=== PATIENT | male | born 1930 | race Caucasian/White ===

== ENCOUNTER 2019-04-16 17:36 | Inpatient (IN) ==
--- NOTE | 2019-04-16 17:58 | PROVIDER DOCUMENTATION ---
This chart was entered by Rosita Jean Baptiste Scribe, acting as scribe for Swapnil Kwok MD. HPI-Respiratory General - General Source: patient - History of Present Illness-Resp Quality of Pain: reports: pressure Severity in ED: reports: moderate Onset/Duration: reports: 1-3 hours ago Timing: reports: still present, changing over time Cough Quality/Degree: reports: moderate Current Respiratory Medication Therapy: Initiated see nurses note Modifying Factors: worse with: exertion, coughing Associated Symptoms: reports: cough, shortness of breath, short of breath Similar Symptoms Previously?: Yes Recently seen or treated by another doctor?: Yes <Swapnil Kwok - Last Filed: 04/16/19 17:57> <Alisha Kirby - Last Filed: 04/16/19 21:12> - General Chief Complaint: Shortness of Breath Stated Complaint: SOB Time Seen by Provider: 04/16/19 17:40 Allergies/Adverse Reactions: Patient Allergies Allergy/AdvReac Type Severity Reaction Status Date / Time Penicillins AdvReac Unknown Verified 07/02/16 17:23 Home Medications: Home Medication List Medication Instructions Recorded Confirmed Last Taken Type Citalopram [Celexa] 20 mg PO DAILY 07/02/16 07/02/16 07/02/16 History Finasteride 5 mg PO DAILY 07/02/16 07/02/16 07/02/16 History Gabapentin 300 mg PO DAILY 07/02/16 07/02/16 07/02/16 History Hum Insulin NPH/Reg Insulin Hm 2 each SQ DAILY 07/02/16 07/02/16 07/02/16 History [Novolin 70-30 100 Unit/ml Vial] Hydrochlorothiazide 25 mg PO DAILY 07/02/16 07/02/16 07/02/16 History LISINOpril [Prinivil] 2.5 mg PO DAILY 07/02/16 07/02/16 07/02/16 History Lorazepam 0.5 mg PO DAILY 07/02/16 07/02/16 07/02/16 History Metoprolol Tartrate 100 mg PO DAILY 07/02/16 07/02/16 07/02/16 History ATORVAstatin [Lipitor] 40 mg PO HS #30 tablet 07/04/16 Unknown Rx Aspirin [Aspirin EC] 325 mg PO DAILY #30 tablet. 07/04/16 Unknown Rx Omeprazole 40 mg PO DAILY #30 07/04/16 07/02/16 07/02/16 Rx Sucralfate [Carafate] 1 gm PO Q6H #120 tablet 07/04/16 Unknown Rx - History of Present Illness-Resp Nature of Presenting Problem: 88yowm presents to ED by EMS cc SOB. Pt reports he is being treated for a URI with ABT and steroid. EMS reports home health called them and said pt became increasingly SOB with rales, ronchi and wheezing as the day has progressed. EMS reports sats dropped into the high 80's in route so they gave him a breathing treatment and when it was finished he went back into the high 80's. Pt has hx of HTN and DM. (Swapnil Kwok) Review of Systems - Adult - REVIEW OF SYSTEMS - ADULT Constitutional: reports: see HPIamor. denies: chills, fever Eyes: reports: no symptoms reported Ears, Nose, Mouth & Throat: reports: no symptoms reported Cardiovascular: reports: see HPI. denies: chest pain, palpitations Respiratory: reports: see HPI, cough, dyspnea on exertion, shortness of breath, wheezing Gastrointestinal: reports: see HPI. denies: diarrhea, nausea, vomiting Genitourinary: reports: no symptoms reported Musculoskeletal: reports: no symptoms reported Integumentary: reports: no symptoms reported Neurological: reports: no symptoms reported Psychiatric: reports: no symptoms reported Endocrine: reports: no symptoms reported Hematologic/Lymphatic: reports: no symptoms reported Allergic/Immunologic: reports: no symptoms reported All Other Systems: Reviewed and Negative <Swapnil Kwok - Last Filed: 04/16/19 17:57> Past History - Adult - PAST MEDICAL HISTORY-ADULT Review of Records: reports: Nursing Assessment Review, Medications Reviewed, Social history reviewed & non-contributory. Major Childhood Illnesses: reports: denies history Cardiovascular: reports: HTN Respiratory: reports: denies history Gastrointestinal: reports: denies history Obstetrical/Gynecological: reports: denies history Genitourinary: reports: denies history Musculoskeletal: reports: denies history Neurological: reports: denies history Endocrine/Immune: reports: Diabetes Other Conditions: reports: denies history - IMMUNIZATION STATUS Childhood Immunizations: See Nurse Assessment Flu Vaccine: See Nurse Assessment - FAMILY HISTORY Family History: reviewed, not pertinent <Swapnil Kwok - Last Filed: 04/16/19 17:57> Physical Exam-General - PHYSICAL EXAM-ADULT Initial Vital Signs Reviewed: Yes - CONSTITUTIONAL General Appearance: alert, moderate distress, obese. negative: anxious, combative - EYES Eyes: PERRL/EOMI, pink conjunctivae. negative: meningismus, pale conjunctivae, photophobia - HEAD, EARS, NOSE, MOUTH & THROAT HENMT: normocephalic/atraumatic, moist mucous membranes, normal ENT inspection. negative: angioedema, dental decay, hearing deficit - NECK Neck: non-tender, full range of motion, supple, normal inspection. negative: C- spine tenderness - RESPIRATORY Respiratory: chest non-tender, normal breath sounds, no pleuratic chest pain, rales, rhonchi, wheezing. negative: lungs clear, crackles, stridor - CARDIOVASCULAR Cardiovascular: normal peripheral pulses, no edema, no gallop, no JVD, no murmur , tachycardia. negative: regular rate, rhythm, bradycardia - GASTROINTESTINAL (ABDOMEN) Abdominal Exam: normal bowel sounds, non tender, soft, no organomegaly, no pulsatile mass. negative: distended, guarding, rigid, rebound, tenderness, hernia, mass - LYMPHATIC Lymphatic: no adenopathy. negative: enlargement, striations, streaking - MUSCULOSKELETAL Back Exam: normal inspection, no CVA tenderness, no vertebral tenderness. negative: ecchymosis, swelling - NEUROLOGIC Neurologic: oil producer II-XII nml as tested, grossly normal, no motor/sensory deficits. negative: facial droop, focal weakness, motor weakness, sensory deficit - PSYCHIATRIC Psych/Mental Status: normal mood/affect, normal thought content, normal thought process, oriented x 3. negative: disoriented x 3, anxious, disheveled, depressed affect <Swapnil Kwok - Last Filed: 04/16/19 17:57> Progress - EKG 1 Time of EKG reading by physician:: 17:55 EKG Read and Signed by:: Swapnil Kwok EKG Interpretation (*Must complete 3 of following elements*): Abnormal Rate: 99 Rhythm: mormal sinus [place]: left QRS: LBB <Swapnil Kwok - Last Filed: 04/16/19 17:57> - PLAN OF CARE/RESULTS Result Diagrams: 04/16/19 17:54 04/16/19 17:54 - CHANGE OF SHIFT REPORT (ED Provider) 1 Report Given and Care Transferred to:: [facility] Time of Transfer: 19:00 Items Pending: Labs, XRAY Results <Alisha Kirby - Last Filed: 04/16/19 21:12> - PLAN OF CARE/RESULTS Progress/Plan/Lab Results: Vital Signs - 8 hr 04/16/19 17:53 Temperature 98.8 F Pulse Rate 96 H Respiratory Rate 22 Blood Pressure 173/82 O2 Sat by Pulse Oximetry 91 L Laboratory Results - last 24 hr 04/16/19 04/16/19 04/16/19 17:47 17:54 17:54 WBC 8.39 RBC 4.80 Hgb 15.5 Hct 45.7 MCV 95.2 MCH 32.3 H MCHC 33.9 RDW Std Deviation 13.0 Plt Count 116 L MPV 9.1 Immature Gran % (Auto) 0.2 Neut % (Auto) 82.8 H Lymph % (Auto) 11.1 L [place] % (Auto) 5.0 Eos % (Auto) 0.8 Baso % (Auto) 0.1 Immature Gran # (Auto) 0.02 Neut # (Auto) 6.94 H Lymph # (Auto) 0.93 L [place] # (Auto) 0.42 Eos # (Auto) 0.07 Baso # (Auto) 0.01 PT INR PTT (Actin FS) Specimen Type ARTERIAL Sample Site L RADIAL pH 7.40 pCO2 39 pO2 54 L HCO3 24.4 Base Excess -0.5 Oxyhemoglobin 90.7 L ABG O2 Sat (Calculated) 16.4 ABG O2 Saturation 94.1 L ABG Carboxyhemoglobin 2.70 H ABG Methemoglobin 1.0 Hayes Test YES A-a O2 Difference 47.0 Total Hemoglobin 12.9 Lactate 2.00 Blood Gas Modality ROOM AIR FiO2 % 21.0 Sodium 132 L Potassium 5.2 H Chloride 99 Carbon Dioxide 22 L Anion Gap 12 BUN 30 H Creatinine 1.6 H Estimated GFR/1.73 m2 41 BUN/Creatinine Ratio 19 Glucose 278 H Calculated Osmolality 281 Calcium 8.6 L Magnesium 1.8 Total Bilirubin 0.40 AST 22 ALT 11 Alkaline Phosphatase 84 Creatine Kinase 76 Troponin T [id number] Pept Total Protein 7.4 Albumin 4.2 Globulin 3.0 Albumin/Globulin Ratio 1.0 Plasma Lactate Urine Source Urine Color Urine Clarity Urine pH Ur Specific [place] Urine Protein Urine Ketones Urine Blood Urine Nitrite Urine Bilirubin Urine Urobilinogen Urine Microscopic RBC Urine WBC Urine Microscopic WBC Ur Epithelial Cells Urine Bacteria Urine Glucose 04/16/19 04/16/19 04/16/19 17:54 17:54 17:54 WBC RBC Hgb Hct MCV MCH MCHC RDW Std Deviation Plt Count MPV Immature Gran % (Auto) Neut % (Auto) Lymph % (Auto) [place] % (Auto) Eos % (Auto) Baso % (Auto) Immature Gran # (Auto) Neut # (Auto) Lymph # (Auto) [place] # (Auto) Eos # (Auto) Baso # (Auto) PT 12.9 INR 0.93 PTT (Actin FS) 26.4 Specimen Type Sample Site pH pCO2 pO2 HCO3 Base Excess Oxyhemoglobin ABG O2 Sat (Calculated) ABG O2 Saturation ABG Carboxyhemoglobin ABG Methemoglobin Hayes Test A-a O2 Difference Total Hemoglobin Lactate Blood Gas Modality FiO2 % Sodium Potassium Chloride Carbon Dioxide Anion Gap BUN Creatinine Estimated GFR/1.73 m2 BUN/Creatinine Ratio Glucose Calculated Osmolality Calcium Magnesium Total Bilirubin AST ALT Alkaline Phosphatase Creatine Kinase Troponin T < 0.010 [id number]-[id number] Pept Total Protein Albumin Globulin Albumin/Globulin Ratio Plasma Lactate 1.9 Urine Source Urine Color Urine Clarity Urine pH Ur Specific [place] Urine Protein Urine Ketones Urine Blood Urine Nitrite Urine Bilirubin Urine Urobilinogen Urine Microscopic RBC Urine WBC Urine Microscopic WBC Ur Epithelial Cells Urine Bacteria Urine Glucose 04/16/19 04/16/19 17:54 18:11 WBC RBC Hgb Hct MCV MCH MCHC RDW Std Deviation Plt Count MPV Immature Gran % (Auto) Neut % (Auto) Lymph % (Auto) [place] % (Auto) Eos % (Auto) Baso % (Auto) Immature Gran # (Auto) Neut # (Auto) Lymph # (Auto) [place] # (Auto) Eos # (Auto) Baso # (Auto) PT INR PTT (Actin FS) Specimen Type Sample Site pH pCO2 pO2 HCO3 Base Excess Oxyhemoglobin ABG O2 Sat (Calculated) ABG O2 Saturation ABG Carboxyhemoglobin ABG Methemoglobin Hayes Test A-a O2 Difference Total Hemoglobin Lactate Blood Gas Modality FiO2 % Sodium Potassium Chloride Carbon Dioxide Anion Gap BUN Creatinine Estimated GFR/1.73 m2 BUN/Creatinine Ratio Glucose Calculated Osmolality Calcium Magnesium Total Bilirubin AST ALT Alkaline Phosphatase Creatine Kinase Troponin T [id number]-[id number] Pept 1886 H Total Protein Albumin Globulin Albumin/Globulin Ratio Plasma Lactate Urine Source CLEAN CATCH Urine Color YELLOW Urine Clarity CLEAR Urine pH 6.0 Ur Specific [place] 1.005 Urine Protein 2+(100 mg/dL) A Urine Ketones NEGATIVE Urine Blood 2+ A Urine Nitrite NEGATIVE Urine Bilirubin NEGATIVE Urine Urobilinogen NORMAL Urine Microscopic RBC <10 Urine WBC NEGATIVE Urine Microscopic WBC <10 Ur Epithelial Cells <10 Urine Bacteria NEGATIVE Urine Glucose 2+(250 mg/dL) A Orders Category Date Time Status Cardiac Monitoring DIRECTED Care 04/16/19 17:37 Active IV Insertion ORDERED Care 04/16/19 17:37 Completed Notify MD of + Sepsis Screen NOW Care 04/16/19 17:37 Active Notify Physician As Ordered Care 04/16/19 17:37 Active CHEST-1 VIEW [RAD] Stat Exams 04/16/19 17:37 Completed ABG [RESP] Routine Lab 04/16/19 17:47 Completed BLOOD CULTURE [BLDCUL] Stat Lab 04/16/19 17:50 Ordered BNP [PRO B-NATRIURETIC PEPTIDE] Stat Lab 04/16/19 17:54 Completed CBC WITH DIFF [HEME] Stat Lab 04/16/19 17:54 Completed CK PROFILE [SP CHEM] Stat Lab 04/16/19 17:54 Completed COMPREHENSIVE METABOLIC PANEL [CHEM] Stat Lab 04/16/19 17:54 Completed LACTATE, PLASMA [CHEM] Lab 04/16/19 20:54 Received LACTATE, PLASMA [CHEM] Lab 04/16/19 23:45 Uncollected LACTATE, PLASMA [CHEM] Q3H Lab 04/16/19 17:54 Completed MAGNESIUM [CHEM] Stat Lab 04/16/19 17:54 Completed PROTIME WITH INR [COAG] Stat Lab 04/16/19 17:54 Completed PTT [COAG] Stat Lab 04/16/19 17:54 Completed TROPONIN T Stat Lab 04/16/19 17:[address] W/POSS RFLX CULT [URINALYSIS] Stat Lab 04/16/19 18:11 Completed Furosemide [Lasix] Med 04/16/19 20:58 Discontinued 40 mg IV NOW ONE Oxygen Device Stat Oth 04/16/19 17:37 Active Patient signed out to me pending reeval, labs and final dispo. Patient with XR showing pulm edema. Sounds like bilateral crackles. SpO2 93% on NC and patient does not take O2 at home. Will keep for CHF exacbaertion and evaluation for home O2. Spoke to Dr Larson operational communication chief for hospitalist who accepted patient for admission. (Alisha Kirby) Departure - Departure Date of Disposition Decision: 04/16/19 Certified Medical Emergency: Emergent <Swapnil Kwok - Last Filed: 04/16/19 17:57> - Departure Time of Disposition Decision: 21:10 - Critical Care Note This patient required my direct & personal management of CC.: No <Alisha Kirby - Last Filed: 04/16/19 21:12> - Departure DIAGNOSIS: CHF (congestive heart failure), Hypoxia Disposition: ADMITTED INPATIENT 09 Condition: Stable Additional Freetext Instructions: ED Follow Up Instructions: You have been treated by a care provider in the Emergency Department. These instructions are being provided to you so you can have an understanding of how to care for yourself upon discharge. Upon discharge from the Emergency Department, you are responsible for making arrangements for follow-up care by a physician of your choice. Take all prescribed medications as directed. Return to the Emergency Department immediately for any new or worsening symptoms. You may call the Physician Referral phone number at [phone] to obtain a list of Physicians who are taking new patients. Attestation - Physician/ STEFAN Attestation Patient care was provided by Advanced Practice Provider:: No The physician spent face to face time with patient:: Yes Advanced Practice Provider documentation review:: Supervising physician onsite and consulted in the evaluation and care of this patient. The physician did have a face to face encounter with the patient. <Swapnil Kwok - Last Filed: 04/16/19 17:57> This chart was documented by the indicated scribe, (Rosita Jean Baptiste Scribe) and accurately reflects the services I performed and decisions made by me, Swapnil Kwok MD, as attested by the provider's signature.
[2019-04-16 18:07] LABS: BE -0.5 mmoll (-3.0-3.0); BLOOD TYPE ARTERIAL; HCO3-(ACT) 24.4 mmoll (20.0-26.0); O2(CT) 16.4 mL/dL (15.0-23.0); O2HB 90.7 % (95.0-99.0); PCO2(98.6) 39 mmHg (35-45); PO2(98.6) 54 mmHg (60-100); SAMPLE BLOOD; SAO2 94.1 % (95.0-100.0); THB 12.9 g/dL (11.5-17.4)
[2019-04-16 18:10] LABS: ALLEN TEST YES; MODALITY ROOM AIR
[2019-04-16 18:13] LABS: BASO# 0.01 X1000 (0.0-0.2); BASO% 0.1 % (0.0-0.8); EOS# 0.07 X1000 (0.0-0.7); EOS% 0.8 % (0.0-10.0); HEMATOCRIT 45.7 % (42.0-52.0); HEMOGLOBIN 15.5 g/dL (14.0-18.0); IMM GRAN# 0.02 X1000 (0.0-0.04); IMM GRAN% 0.2 % (0.0-0.5); LYMPH# 0.93 X1000 (1.2-3.4); LYMPH% 11.1 % (20.5-51.1); MCH 32.3 PG (27-31); MCHC 33.9 g/dL (33-37); MCV 95.2 FL (81-99); MONO# 0.42 X1000 (0.11-0.59); MPV 9.1 FL (7.4-10.4); NEUT# 6.94 X1000 (1.4-6.5); NEUT% 82.8 % (42.2-75.2); PLT 116 X1000 (130-400); WBC 8.39 X1000 (4.8-10.8)
--- NOTE | 2019-04-16 18:26 | Diag Imaging Result Doc PS360 ---
EXAM: CHEST-1 VIEW 04/16/2019 HISTORY: SOB TECHNIQUE: Erect AP portable at 1833 COMMENT: There is increased interstitial opacity in the lung bases. There is cardiomegaly. Compared to 12/15/2018 the basilar opacities are worse. IMPRESSION: Pulmonary edema. Electronically signed by Saeid Gil 04/16/2019 6:24 PM
[2019-04-16 18:31] LABS: INR 0.93; PROTIME 12.9 Seconds (11.0-16.0)
[2019-04-16 18:32] LABS: PTT 26.4 Seconds (22.3-41.8)
[2019-04-16 18:33] LABS: ALBUMIN 4.2 g/dL (3.5-5.0); CALCIUM 8.6 mg/dL (8.8-10.2); CREATININE 1.6 mg/dL (0.7-1.2); MAGNESIUM 1.8 mg/dL (1.5-2.7); POTASSIUM 5.2 mmol/L (3.5-5.1); TOTAL BILIRUBIN 0.4 mg/dL (0.20-1.00); TOTAL PROTEIN 7.4 g/dL (6.3-8.3)
[2019-04-16 18:43] LABS: BILIRUBIN URINE NEGATIVE (NEGATIVE); BLOOD URINE 2+ (NEGATIVE); KETONE URINE NEGATIVE (NEGATIVE); LEUKOCYTES URINE NEGATIVE (NEGATIVE); NITRITE URINE NEGATIVE (NEGATIVE); PROTEIN URINE 2+(100 mg/dL) mg/dL (NEGATIVE); SP GRAVITY URINE 1.005; URINE RBC <10 /HPF (<10); URINE SOURCE CLEAN CATCH; URINE WBC <10 /HPF (<10); UROBILINOGEN URINE NORMAL
[2019-04-16 18:44] LABS: CLARITY CLEAR (CLEAR); COLOR YELLOW; URINE BACTERIA NEGATIVE /HFP; URINE EPITHELIAL CELLS <10 /HPF (<10)
[2019-04-16] MEDS ORDERED: LASIX IV ONE (20:58)
[2019-04-17] MEDS ORDERED: ZOFRAN IV PRN (01:21)
[2019-04-17] MEDS ORDERED: VANCOMYCIN IV PER PHARMACY MISC SCH (01:30)
[2019-04-17] MEDS ORDERED: VANCOMYCIN 1 GM/NS 1 GM/250 ML IVPB IV ONE (02:00)
[2019-04-17] MEDS: TYLENOL PO PRN (02:07)
[2019-04-17] MEDS ORDERED: VANCOMYCIN 500 MG/NS 500 MG/100 ML IVPB IV ONE (03:00)
[2019-04-17 09:24] LABS: BASO# 0.02 X1000 (0.0-0.2); BASO% 0.1 % (0.0-0.8); EOS# 0.02 X1000 (0.0-0.7); EOS% 0.1 % (0.0-10.0); HEMOGLOBIN 11.6 g/dL (14.0-18.0); IMM GRAN# 0.07 X1000 (0.0-0.04); IMM GRAN% 0.4 % (0.0-0.5); LYMPH# 1.52 X1000 (1.2-3.4); LYMPH% 7.9 % (20.5-51.1); MCHC 33.1 g/dL (33-37); MCV 96.4 FL (81-99); MONO# 1.67 X1000 (0.11-0.59); MONO% 8.6 % (1.7-9.3); MPV 8.3 FL (7.4-10.4); NEUT# 16.01 X1000 (1.4-6.5); NEUT% 82.9 % (42.2-75.2); PLT 159 X1000 (130-400); RBC 3.63 XMIL (4.7-6.1); RDW 12.8 % (11.5-14.5); WBC 19.31 X1000 (4.8-10.8)
[2019-04-17 09:33] LABS: CALCIUM 8.5 mg/dL (8.8-10.2); CREATININE 1.7 mg/dL (0.7-1.2); POTASSIUM 4.9 mmol/L (3.5-5.1)
[2019-04-17] MEDS: LASIX IV SCH (10:21)
[2019-04-17] MEDS: LEVAQUIN PO SCH ×2 (10:21→10:32)
[2019-04-17] MEDS: LOVENOX SUBQ SCH (10:21)
[2019-04-17] MEDS: PRILOSEC PO SCH (10:32)
[2019-04-17] MEDS: DUONEB (A & A) INH SCH ×3 (11:14→20:25)
--- NOTE | 2019-04-17 11:28 | EKG Report ---
Test Performed on : 04/16/2019 5:45:24 PM Test Reason : ER ORDERED Blood Pressure : / mmHG Vent. Rate : 099 BPM Atrial Rate : 099 BPM P-R Int : 170 ms QRS Dur : 156 ms QT Int : 392 ms P-R-T Axes : -15 -36 128 degrees QTc Int : 503 ms Normal sinus rhythm. Left axis deviation Left bundle branch block Abnormal ECG When compared with ECG of 02-JUL-2016 17:12, No significant change was found Unconfirmed Result
[2019-04-17] MEDS: PROSCAR PO SCH (12:42)
[2019-04-17] MEDS: PRINIVIL PO SCH (12:42)
[2019-04-17] MEDS: ASPIRIN EC PO SCH (12:42)
[2019-04-17] MEDS: CELEXA PO SCH (12:43)
[2019-04-17] MEDS: LOPRESSOR PO SCH (12:43)
[2019-04-17] MEDS: NEURONTIN PO SCH (12:43)
--- NOTE | 2019-04-17 13:26 | Diag Imaging Result Doc PS360 ---
EXAM: CHEST-PORTABLE 04/17/2019 HISTORY: dyspnea TECHNIQUE: AP portable at 1304 COMMENT: There is ill-defined opacity in both lower lung rucker. This has not changed since 04/16/2019. This was not the case on 12/15/2018. IMPRESSION: Mild pulmonary edema. Electronically signed by Saeid Gil 04/17/2019 1:24 PM
--- NOTE | 2019-04-17 13:56 | HISTORY AND PHYSICAL ---
PRIMARY CARE PHYSICIAN: Dr. Meehan. CHIEF COMPLAINT: Shortness of breath. HISTORY OF PRESENT ILLNESS: Mr. Huerta is an 88-year-old male, who presented to the ER with complaints of shortness of breath, coughing, and fever since of this week. His refrigeration systems installer, Dr. Meehan, was notified by his home health nurse. Dr. Meehan started him on some oral antibiotics and oral steroids. The patient states his shortness of breath has become steadily worse so he decided to come to the ER. The patient has past medical history of hypertension, diabetes, GERD, BPH, peripheral neuropathy, and TIA. The patient is also somewhat hard of hearing. The patient denies any chest pain. Denies any sputum production with his coughing. Denies any nausea or vomiting. Denies any dysuria, hematuria, urgency, or frequency. Denies any melena. The patient states he has no problems with his bowels, but still continues to have problems with his GERD. The patient is on 2 L nasal cannula at this time and states that he is not short of breath. The patient does have an ulcer noted to the bottom of the right heel, and he has been seen by Dr. Hilliard. 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 Chest x-ray does show pulmonary edema. The patient was given a dose of Lasix 40 mg IV. The patient was also started on vancomycin IV and Levaquin p.o. The patient did have a positive white blood cell count this morning of 19.31. His lactates were elevated at 4.5, but has since decreased. PAST MEDICAL HISTORY: Hypertension, diabetes, GERD, BPH, peripheral neuropathy, TIA, hard of hearing. PAST SURGICAL HISTORY: Cholecystectomy, cataract removal, back surgery, and appendectomy. FAMILY HISTORY: Brother and sister have heart problems, and father of a heart attack. SOCIAL HISTORY: Patient lives in [place]. He lives alone. His is in a senior care. He denies any smoking or drug abuse. He states he drinks 1 bottle of beer a day. ALLERGIES: Penicillin. States he also has difficulty taking pain medications because they cause him the itch. MEDICATIONS: Home medication reconciliation has not been performed. Last known medications are: 1. Lorazepam 0.5 mg p.o. daily. 2. Lisinopril 2.5 mg p.o. daily. 3. Hydrochlorothiazide 25 mg p.o. daily. 4. Celexa 20 mg p.o. daily. 5. Metoprolol 100 mg p.o. daily. 6. Finasteride 5 mg p.o. daily. 7. Novolin 70/30 two units subcutaneous daily. 8. Gabapentin 300 mg p.o. daily. 9. Aspirin 325 mg p.o. daily. 10. Carafate 1 g p.o. q.6 h. 11. Lipitor 40 mg p.o. at bedtime. 12. Omeprazole 40 mg p.o. daily. DIAGNOSTIC STUDIES: White blood cell count 19.31, red blood cell count 3.63, hemoglobin 11.6, hematocrit 35.0, platelet count 159,000. Coagulation studies: PT 12.9, INR 0.93, PTT 26.4. Sodium 137, potassium 4.9, BUN 36, creatinine 1.7, estimated GFR 38, glucose 190, calcium 8.5. Magnesium 1.6. ProBNP 1886. Troponin less than 0.01. Total bilirubin 0.40, AST 22, ALT 11, alkaline phosphatase 84. Creatine kinase 76. Initial lactate was 4.5, and then the 2nd one was 1.9, and the 3rd one was 2.1. Urinalysis shows 2+ glucose, 2+ blood, 2+ protein. Chest x-ray shows pulmonary edema. REVIEW OF SYSTEMS: A 12 point review of systems has been obtained. All are negative except what is stated above in HPI. PHYSICAL EXAMINATION: VITAL SIGNS: Temperature 98.4 degrees, heart rate 84, respiratory rate 20, blood pressure 137/55, O2 saturation 96% on 2 L nasal cannula. HEIGHT/WEIGHT: Weight 195 pounds, height 5 feet 8 inches. GENERAL: This is a 68-year-old male. He is lying on the hospital bed. He is in no acute distress at the present time. He is well nourished and well developed. HEENT: Atraumatic, normocephalic. Pupils equal, round, and reactive to light. Sclerae anicteric. Mucous membranes are moist. Extraocular movements intact. NECK: Supple. No lymphadenopathy. Trachea is midline. No JVD. CARDIOVASCULAR: Regular rate and rhythm. No murmurs, gallops, or rubs appreciated. RESPIRATORY: Lung sounds are coarse throughout. Respirations are nonlabored with no accessory muscle usage. GASTROINTESTINAL: Abdomen is soft, nontender, nondistended. Bowel sounds are present x4. NEUROLOGIC: Cranial nerves 2-12 intact. The patient is awake, alert, oriented, and able to follow all commands. MUSCULOSKELETAL: Full distal strength noted. No abnormalities. No deformities. EXTREMITIES: No clubbing, no cyanosis, no edema. DP and PT pulses are present and palpable. SKIN: Warm and dry. There is a ulcer noted to the bottom of the right heel. No rashes or bruises. No diaphoresis. ASSESSMENT AND PLAN: 1. Congestive heart failure exacerbation. We placed this patient on the medical floor. He is on playground monitor. We have started him on Lasix 40 mg IV daily. I have ordered repeat labs in the morning and chest x-ray. 2. Lactic acidosis. I have repeated the labs this morning, and his laboratory findings have improved. His plasma lactate actually came down from 4.5 to 1.9. It is now 2.1. 3. Leukocytosis. The patient initially did not have an elevated white blood cell count, but now it is up to 19.31. He is on Levaquin and vancomycin IV. We have obtained blood cultures and urine cultures. The patient initially had a fever on arrival. It has now since improved. 4. Diabetes. I have started this patient on fingersticks before meals and at bedtime, and we have provided him with sliding scale insulin. We will restart his home medications once they have been reconciled. 5. Hypertension. Blood pressure is stable at this time. Once his home medication reconciliation has been performed, we will restart his blood pressure medications. 6. Benign prostatic hypertrophy. The patient seems to be on some finasteride, I think, at home, but home medication reconciliation has not been performed, so we will continue this once that has been performed. 7. Gastrointestinal prophylaxis. I have placed this patient on Prilosec daily. 8. Deep venous thrombosis prophylaxis. I have placed him on Lovenox low dose 30 mg subcutaneous q.24 h. We have admitted this patient to medical floor. We placed him on Lasix IV daily. He is getting antibiotics of Levaquin and vancomycin. I have also provided him with breathing treatments. He can have Tylenol for pain. He has Lovenox and omeprazole. We will restart his home medications once they have been reviewed. We have reordered chest x-ray and labs for in the morning. Dictated by CLAY Davis for Vince Larson MD cc: MD Dr. Zoran Chris
--- NOTE | 2019-04-17 16:05 | ECHO REPORT ---
ORDER DATE: 04/17/2019 INTERPRETING PHYSICIAN: Magen Gutierrez MD. CLINICAL INDICATIONS: CHF. REQUESTING: Vince Larson MD. M-MODE MEASUREMENTS: Left ventricle end diastole: 4.8 cm. Left ventricle end systole: 2.9 cm. Posterior wall: 1.1 cm. Interventricular septum: 1.3 cm. Left atrium: 3.6 cm. Aortic diameter: 3.6 cm. SUMMARY OF 2-DIMENSIONAL IMAGIN. The study was difficult. Optison was added to optimize visualization of the endocardium. 2. The left ventricular chamber appears to be moderately enlarged. The left ventricular systolic function is impaired moderately in the range of 40% to 45%. There is atypical contractility of the interventricular septum probably related to the presence of bundle branch block. 3. The right ventricle appears to be mildly enlarged. 4. The atria also appear to be slightly prominent. 5. The aortic valve shows mild degree of sclerosis of the cusps. There is no stenosis. No regurgitation. 6. The mitral valve shows no significant regurgitation. 7. Pulse wave Doppler of mitral inflow showed reversal of E/A ratio, ratio is 0.8. 8. Tissue Doppler of septal and lateral mitral annulus averages 6 cm. 9. There is borderline impaired left ventricular relaxation. 10.The pulmonic valve is grossly normal. 11.The tricuspid valve also showed [id number] degree of regurgitation. 12.Pulmonary systolic pressure is estimated at 47 mmHg. 13.There is no pericardial effusion, no mass, and no thrombus. SUMMARY: The study shows: 1. Clinically difficult study, Optison added. Left ventricular systolic function 40% to 45% with atypical contractility of interventricular septum probably related to left bundle branch block. 2. Suspect impaired left ventricular relaxation. 3. Pulmonary pressure estimated at 47 mmHg. No significant valvular abnormalities noted. cc: MD Vince Wu MD
--- NOTE | 2019-04-17 19:09 | PROGRESS NOTE ---
The patient is seen and examined by myself. Full note dictated and discussed with nurse practitioner. The patient presented to the hospital. Subsequently he has had a low-grade fever after admission. He does now remember that he has had fevers in the past few days as well. His lactate was elevated at 4.5. Currently, repeat was back to normal. We are going to place him on vancomycin and on Zosyn, and will follow. Will await blood and urine cultures. cc: Vince Larson MD
[2019-04-17] MEDS: HUMULIN 70/30 (PARKWAY) SUBQ SCH (21:05)
[2019-04-17] MEDS: ATIVAN PO SCH (21:05)
[2019-04-18] MEDS: DUONEB (A & A) INH SCH ×2 (03:25→09:35)
[2019-04-18] MEDS: PRILOSEC PO SCH (06:08)
[2019-04-18 07:00] LABS: BASO# 0.02 X1000 (0.0-0.2); BASO% 0.1 % (0.0-0.8); EOS% 1.3 % (0.0-10.0); HEMATOCRIT 35.6 % (42.0-52.0); HEMOGLOBIN 11.7 g/dL (14.0-18.0); IMM GRAN# 0.02 X1000 (0.0-0.04); IMM GRAN% 0.1 % (0.0-0.5); LYMPH# 1.37 X1000 (1.2-3.4); LYMPH% 9.2 % (20.5-51.1); MCH 31.8 PG (27-31); MCHC 32.9 g/dL (33-37); MCV 96.7 FL (81-99); MONO# 1.36 X1000 (0.11-0.59); MONO% 9.1 % (1.7-9.3); MPV 9.5 FL (7.4-10.4); NEUT# 11.96 X1000 (1.4-6.5); NEUT% 80.2 % (42.2-75.2); PLT 169 X1000 (130-400); RBC 3.68 XMIL (4.7-6.1); RDW 12.9 % (11.5-14.5); WBC 14.93 X1000 (4.8-10.8)
--- NOTE | 2019-04-18 07:10 | EKG Report ---
Test Performed on : 04/18/2019 06:50:49 AM Test Reason : TACHYCARDIA Blood Pressure : / mmHG Vent. Rate : 105 BPM Atrial Rate : 105 BPM P-R Int : 170 ms QRS Dur : 152 ms QT Int : 374 ms P-R-T Axes : 104 -04 145 degrees QTc Int : 494 ms Sinus tachycardia. Left bundle branch block Abnormal ECG When compared with ECG of 16-APR-2019 17:45, (Unconfirmed) QRS axis shifted right Confirmed by Swapnil Kwok MD ([id number]) on 04/18/2019 11:25:21 AM
[2019-04-18 07:26] LABS: HEMOGLOBIN A1C 5.7 % (4.8-6.0)
[2019-04-18 07:33] LABS: ALBUMIN 3.8 g/dL (3.5-5.0); CALCIUM 8.5 mg/dL (8.8-10.2); CREATININE 1.8 mg/dL (0.7-1.2); POTASSIUM 4.2 mmol/L (3.5-5.1); TOTAL BILIRUBIN 0.7 mg/dL (0.20-1.00); TOTAL PROTEIN 7.4 g/dL (6.3-8.3)
[2019-04-18 07:34] LABS: MAGNESIUM 1.8 mg/dL (1.5-2.7)
--- NOTE | 2019-04-18 07:50 | Diag Imaging Result Doc PS360 ---
EXAM: CHEST-PORTABLE 04/18/2019 HISTORY: hypoxia TECHNIQUE: AP portable at 0740 COMMENT: There are irregular opacities with some platelike opacity in the lingula and lateral left base which appears slightly worse than on 04/17/2019. There is less apparent opacity over the right base however. The heart size is within normal limits. IMPRESSION: Waxing and waning basilar atelectasis. Electronically signed by Saeid Gil 04/18/2019 7:48 AM
[2019-04-18] MEDS: LOVENOX SUBQ SCH (08:25)
[2019-04-18] MEDS: PROSCAR PO SCH (08:25)
[2019-04-18] MEDS: NEURONTIN PO SCH (08:25)
[2019-04-18] MEDS: LOPRESSOR PO SCH (08:26)
[2019-04-18] MEDS: LEVAQUIN PO SCH (08:26)
[2019-04-18] MEDS: PRINIVIL PO SCH (08:27)
[2019-04-18] MEDS: CELEXA PO SCH (08:27)
[2019-04-18] MEDS: ASPIRIN EC PO SCH (08:27)
[2019-04-18] MEDS: LASIX IV SCH (08:27)
[2019-04-18] MEDS ORDERED: HUMULIN 70/30 (PARKWAY) SUBQ SCH (09:00)
[2019-04-18] MEDS ORDERED: CARDIZEM 125 MG/D5W 125 MG/125 ML IVPB IV SCH (09:45)
--- NOTE | 2019-04-18 11:19 | EKG Report ---
Test Performed on : 04/18/2019 08:52:28 AM Test Reason : CHECK HEART CHANGES Blood Pressure : / mmHG Vent. Rate : 136 BPM Atrial Rate : 054 BPM P-R Int : 000 ms QRS Dur : 122 ms QT Int : 360 ms P-R-T Axes : 000 012 167 degrees QTc Int : 541 ms Atrial fibrillation. with rapid ventricular response. Left bundle branch block Abnormal ECG When compared with ECG of 18-APR-2019 06:50, (Unconfirmed) Atrial fibrillation. has replaced Sinus rhythm. ST now depressed in Inferior leads ST elevation has replaced ST depression in Lateral leads Confirmed by Swapnil Kwok MD ([id number]) on 04/18/2019 11:25:01 AM
[2019-04-18] MEDS ORDERED: XOPENEX NEB INH PRN (12:47)
[2019-04-18] MEDS ORDERED: VANCOMYCIN 1,500 MG in NS 250 ML IV SCH (14:00)
[2019-04-18] MEDS ORDERED: LEVAQUIN 500 MG in NS 100 ML IV SCH (14:00)
--- NOTE | 2019-04-18 14:04 | PROGRESS NOTE ---
DATE: 04/18/2019 SUBJECTIVE: The patient states he is a little better. His cough is improved. However, earlier this morning he started having tachycardia. Initially it appeared to be supraventricular. He is now in atrial fibrillation. PHYSICAL: Temperature 98, pulse initially this morning was in the 90s, currently at 140 in atrial fibrillation. Blood pressure is stable at 130s to 140s systolic.HEENT: Normocephalic. Neck: Supple. Cardiovascular: Irregular rate, irregular rhythm. Chest: Relatively clear, no crackles. No wheezing. Abdomen: Soft, nondistended, obese. Extremities: Moves all extremities. No edema. ASSESSMENT: 1. Atrial fibrillation. Unclear if patient has a history of atrial fibrillation. His last note 2 or 3 years ago did not mention it. The patient unfortunately is a very poor historian. He is on Toprol, but is not on anticoagulant so it would stand to reason that he had SVTs and not true atrial fibrillation in the past. 2. Congestive heart failure with mild exacerbation, improved. 3. Lactic acidosis, appears resolved. 4. BPH. 5. Hypertension, stable. PLAN: The patient has been given 1 dose of IV Cardizem. His rate is much better in the 70s and 80s. Still in atrial fibrillation. We will continue to rule out IA. His first set of cardiac enzymes are negative. We will check echocardiogram. Certainly will need further cardiac workup. We will continue Lovenox and will follow. cc: Vince Larson MD
[2019-04-18] MEDS: CARDIZEM IV ONE ×2 (17:37→22:21)
[2019-04-18] MEDS: ATIVAN PO SCH (22:07)
[2019-04-18] MEDS: HUMULIN 70/30 (PARKWAY) SUBQ SCH (22:09)
[2019-04-18] MEDS ORDERED: CARDIZEM IV ONE (22:12)
--- NOTE | 2019-04-18 23:41 | EKG Report ---
Test Performed on : 04/18/2019 10:07:18 PM Test Reason : Tachycardia Blood Pressure : / mmHG Vent. Rate : 127 BPM Atrial Rate : 133 BPM P-R Int : 000 ms QRS Dur : 156 ms QT Int : 360 ms P-R-T Axes : 000 -40 130 degrees QTc Int : 523 ms Atrial fibrillation. with rapid ventricular response. Left axis deviation Left bundle branch block Abnormal ECG When compared with ECG of 18-APR-2019 08:52, QRS duration has increased ST now depressed in Lateral leads Confirmed by Swapnil Kwok MD ([id number]) on 05/13/2019 3:34:03 PM
[2019-04-18] MEDS ORDERED: CARDIZEM 125 MG in NS 100 ML IV SCH (23:45)
[2019-04-19] MEDS: CARDIZEM 125 MG in NS 100 ML IV SCH ×2 (01:51→21:11)
--- NOTE | 2019-04-19 02:47 | EKG Report ---
Test Performed on : 04/19/2019 02:29:38 AM Test Reason : rule out a fib Blood Pressure : / mmHG Vent. Rate : 097 BPM Atrial Rate : 097 BPM P-R Int : 172 ms QRS Dur : 150 ms QT Int : 378 ms P-R-T Axes : 080 -46 121 degrees QTc Int : 480 ms Normal sinus rhythm. Left axis deviation Left bundle branch block Abnormal ECG When compared with ECG of 18-APR-2019 22:07, (Unconfirmed) Sinus rhythm. has replaced Atrial fibrillation. Confirmed by Edis Reich MD ([id number]) on 04/19/2019 12:41:46 PM
[2019-04-19] MEDS: PRILOSEC PO SCH (06:20)
[2019-04-19 08:18] LABS: BASO# 0.02 X1000 (0.0-0.2); BASO% 0.1 % (0.0-0.8); EOS# 0.29 X1000 (0.0-0.7); EOS% 2.2 % (0.0-10.0); HEMATOCRIT 35.2 % (42.0-52.0); HEMOGLOBIN 11.7 g/dL (14.0-18.0); IMM GRAN# 0.05 X1000 (0.0-0.04); IMM GRAN% 0.4 % (0.0-0.5); LYMPH# 1.63 X1000 (1.2-3.4); LYMPH% 12.1 % (20.5-51.1); MCH 31.7 PG (27-31); MCHC 33.2 g/dL (33-37); MCV 95.4 FL (81-99); MONO# 1.26 X1000 (0.11-0.59); MONO% 9.3 % (1.7-9.3); MPV 9.5 FL (7.4-10.4); NEUT# 10.23 X1000 (1.4-6.5); NEUT% 75.9 % (42.2-75.2); PLT 172 X1000 (130-400); RBC 3.69 XMIL (4.7-6.1); RDW 12.8 % (11.5-14.5); WBC 13.48 X1000 (4.8-10.8)
[2019-04-19 08:37] LABS: CALCIUM 9.3 mg/dL (8.8-10.2); CREATININE 1.9 mg/dL (0.7-1.2)
--- NOTE | 2019-04-19 08:41 | PROGRESS NOTE ---
DATE: 04/19/2019 SUBJECTIVE: The patient is very hard of hearing. Poor historian. He denies any chest pain or any shortness of breath at rest. He reports having some cough, but he is not sure if the sputum is whitish or greenish. He denies any other complaints. OBJECTIVE: Vital Signs: Temperature 99 degrees, heart rate 89, respiratory rate 16, blood pressure 91/35, O2 saturation 96% 2 L nasal cannula. General: This is a chronically ill- appearing, 88-year-old, male, lying in bed in no acute distress. HEENT: Head is normocephalic and atraumatic. Mucous membranes are dry. Poor dentition. Neck: No JVD noted. No carotid bruits. No lymphadenopathy. No thyromegaly. Cardiovascular: S1, S2 heard. Irregularly irregular. No murmurs, gallops, or rubs noted. Respiratory: Minimal coarse breath sounds noted in both pulmonary bases. The patient is not using any accessory muscles or having work of breathing. Abdomen: Soft, nontender to palpation, nondistended. Bowel sounds are present. No organomegaly. Extremities: No clubbing, cyanosis, or edema. Peripheral pulses are present in both legs. Neurological: The patient is very hard of hearing, but follows commands. Speech is coherent. He moves all 4 extremities. LABORATORY DATA: Labs are pending at the time of my dictation, but from yesterday showed a leukocytosis and elevated creatinine. ASSESSMENT AND PLAN: 1. Congestive heart failure. I am seeing this patient for the first time today, and as per history and physical, apparently he was complaining of shortness of breath, coughing, and fever. White cell count was elevated, but the x-ray just shows pulmonary edema. We do not have labs from today, but apparently the white cell count is getting better. The patient is on antibiotics. Also, the x-ray shows pulmonary edema, so he was started on Lasix 40 mg intravenously daily. So far, his urine output showed 1500 of urine during the last 24 hours, so at this point, I think we will continue with the same management. 2. Acute bronchitis. I am not quite sure if this patient has this diagnosis, or it is a subtle pneumonia that we are not able to see on the x-ray. In any case, what I am going to do is to order a CT of the chest without contrast, and will go from there. He is requiring 2 liters of oxygen by nasal cannula. Will continue with also levalbuterol as needed. 3. Diabetes mellitus type 2. Will continue with Accu-Chek before meals and also at bedtime, and sliding scale insulin as well. 4. Hypertension. With current medications, blood pressure is actually low, in the range of 90s, just one reading, but most of the time, it is between 100 and 120s. At this point, will continue with current management. 5. Benign prostatic hypertrophy. Will restart finasteride, and if not on Flomax, will place it on. 6. Atrial fibrillation with rapid ventricular response. Apparently, there is no history of this problem. The patient is a very poor historian. The patient is on the Toprol at home, but no anticoagulation. In any case, we have consulted Cardiology, and will go from there. 7. Elevated troponins. The patient is not complaining of any chest pain. Upon my examination today, there is reproducible chest pain. Cardiac enzymes, in this case, troponins are getting higher from normal at admission. What I am going to do is to order an echocardiogram and a stat electrocardiogram. I will await Cardiology recommendations. 8. Disposition. Will continue to monitor this patient closely here in the [facility]. The patient is receiving aspirin daily. The patient is on lisinopril and beta blockers. Will continue with the same management. cc: Jt Monsivais MD MTDD
[2019-04-19] MEDS: PRINIVIL PO SCH (09:21)
[2019-04-19] MEDS: NEURONTIN PO SCH (09:21)
[2019-04-19] MEDS: LOPRESSOR PO SCH (09:21)
[2019-04-19] MEDS: PROSCAR PO SCH (09:21)
[2019-04-19] MEDS: HUMULIN 70/30 SUBQ SCH ×2 (09:22→20:59)
[2019-04-19] MEDS: LASIX IV SCH (09:22)
[2019-04-19] MEDS: LOVENOX SUBQ SCH (09:22)
[2019-04-19] MEDS: CELEXA PO SCH (09:22)
[2019-04-19] MEDS: ASPIRIN EC PO SCH (09:22)
--- NOTE | 2019-04-19 09:22 | Diag Imaging Result Doc PS360 ---
CT THORAX W/O CONTRAST - 04/19/2019 INDICATION: pna suspected COMPARISON: Prior chest x-rays FINDINGS: There is extremely dense calcification of the coronary arteries particularly the left anterior descending coronary artery. Heart size is normal with no pericardial effusion. There is some aspirated mucus or material in the mid trachea. There is some fine infiltrate in both lower lobes mainly in the left lower lobe. There is some linear atelectasis in both lung bases. No adenopathy. Upper nominal images are unremarkable. There are moderate degenerative changes of the spine. No acute or suspicious bony lesion. IMPRESSION: 1. Bilateral lower lobe infiltrate compatible with pneumonia or aspiration. 2. Aspirated mucus or material in the trachea. 3. Advanced calcified coronary artery disease. This exam was performed using automated exposure control, adjustment of mA or kV according to patient size, and/or use of iterative reconstruction technique Electronically signed by Víctor Cabrera 04/19/2019 9:20 AM
[2019-04-19] MEDS ORDERED: LOVENOX SUBQ ONE (11:15)
--- NOTE | 2019-04-19 12:07 | CARDIOLOGY CONSULTATION ---
DATE: 04/19/2019 CHIEF COMPLAINT ON PRESENTATION: Shortness of breath. HISTORY OF PRESENT ILLNESS: Mr. Huerta is an 88-year-old white male who presented to the ER with complaints of shortness of breath, coughing and subjective fevers. His outpatient physician placed him on antibiotics, and he did not have any real improvement in his symptoms. He describes a burning type chest discomfort also occurring a couple or 3 days prior to presentation. There was no exertional component to it. He reports a productive cough. PAST MEDICAL HISTORY: 1. Hypertension. 2. Diabetes. 3. Reflux. 4. BPH. 5. History of TIA. SOCIAL HISTORY: He lives in [place]. His apparently lives in a detention. No tobacco use. He drinks one bottle of beer per day. FAMILY HISTORY: Some sort of heart problems in both siblings. Father of a heart attack. REVIEW OF SYSTEMS: A 10-system review of systems is negative except for those as mentioned in the HPI. PHYSICAL EXAMINATION: The patient was febrile to 100.5 on 04/17/2019. His most recent heart rate is 86 with a blood pressure of 119/44. General: He is in no acute distress. HEENT: Oropharynx is moist. Poor dentition. Eye examination shows pink conjunctivae, white sclerae. Neck: No obvious thyromegaly or thyroid tenderness. Cardiovascular: He sounds to be in a regular rate and rhythm. He has no lower extremity edema. He has warm and well perfused extremities. His chest exam has coarse breath sounds, somewhat decreased in the bases. No increased work of breathing. His abdomen is soft, nontender and nondistended. He has no obvious organomegaly. Skin exam is warm and dry throughout without any rashes. Neurologic: He is moving all extremities well. He has no lateralizing deficits. DIAGNOSTIC DATA: His white count on presentation was 8.4 but pierre to 19.3 and then subsequently has trended down to 13.4. His hematocrit is 35, his platelet count is 172. His sodium is 136, potassium is 4, BUN is 54, creatinine is 1.9. On presentation, it was 30 and 1.6, respectively. In 2016, it was 23 and 1.2. His cardiac enzymes were normal on presentation. Subsequent check on 04/18/2019 at 9:55 was 0.225 and on 04/19/2019, this morning, was 0.399. His CK was normal. Electrocardiogram checked on presentation demonstrates a sinus rhythm. He has very small P waves evident. Left bundle branch block noted. His subsequent EKG occurring at 6:41 on 04/18/2019 shows again what appears to be a sinus tachycardia, left bundle. This is consistent with old. Next EKG on 04/18/2019 at 8:52 appears to show sinus tachycardia of 136. There is some irregularity and then the slight pauses occurring between beats, there do appear to be P waves evident. There is some mild irregularity in the rhythm. His next EKG occurring on 04/19/2019 at 2:29 a.m. shows sinus rhythm with a left bundle. Chest CT demonstrates bilateral lower lobe infiltrates suggesting pneumonia or aspiration, advanced coronary calcifications. ASSESSMENT: Mr. Huerta is an 88-year-old gentleman who presented with what appears to be a pneumonia. He since has noted to have an echocardiogram that demonstrates an EF of 40% to 45% with atypical contractility of the septum consistent with his bundle. He had some irregularity and tachycardia concerning for possible atrial fibrillation. PLAN: I will review his telemetry and see if we can identify any more clear rhythm strips suggestive of atrial fibrillation. Right now, his EKG that is provided is not clearly evident. We will continue with his beta genaro for the time being. We will need to perform some sort of an ischemia evaluation in the patient and likely will defer to stress testing at this point. Further recommendations to follow. cc: MD Jt Manjarrez MD
[2019-04-19] MEDS ORDERED: LEVAQUIN 500 MG in NS 100 ML IV SCH (14:00)
[2019-04-19] MEDS: ATIVAN PO SCH (21:00)
[2019-04-20] MEDS: ATIVAN PO SCH ×2 (00:28→21:23)
[2019-04-20] MEDS ORDERED: VANCOMYCIN 1,500 MG in NS 250 ML IV SCH (02:00)
[2019-04-20 03:58] LABS: BASO# 0.02 X1000 (0.0-0.2); BASO% 0.1 % (0.0-0.8); EOS# 0.38 X1000 (0.0-0.7); EOS% 2.7 % (0.0-10.0); HEMATOCRIT 32.4 % (42.0-52.0); HEMOGLOBIN 10.8 g/dL (14.0-18.0); IMM GRAN# 0.04 X1000 (0.0-0.04); IMM GRAN% 0.3 % (0.0-0.5); LYMPH# 2.08 X1000 (1.2-3.4); LYMPH% 14.8 % (20.5-51.1); MCH 31.8 PG (27-31); MCHC 33.3 g/dL (33-37); MCV 95.3 FL (81-99); MONO# 1.03 X1000 (0.11-0.59); MONO% 7.3 % (1.7-9.3); NEUT# 10.51 X1000 (1.4-6.5); NEUT% 74.8 % (42.2-75.2); PLT 179 X1000 (130-400); RDW 12.7 % (11.5-14.5); WBC 14.06 X1000 (4.8-10.8)
[2019-04-20 04:44] LABS: CALCIUM 8.8 mg/dL (8.8-10.2); CREATININE 2.2 mg/dL (0.7-1.2); POTASSIUM 4.3 mmol/L (3.5-5.1)
[2019-04-20] MEDS: TYLENOL PO PRN (05:09)
[2019-04-20] MEDS: PRILOSEC PO SCH (06:07)
[2019-04-20] MEDS: MAXIPIME 1 GM in NS 50 ML IV SCH ×2 (08:42→21:24)
[2019-04-20] MEDS: LOVENOX SUBQ SCH (08:42)
[2019-04-20] MEDS: ZYVOX 600 MG/D5W 600 MG/300 ML IVPB IV SCH ×2 (08:42→21:24)
[2019-04-20] MEDS: ASPIRIN EC PO SCH (08:42)
[2019-04-20] MEDS: LOPRESSOR PO SCH (08:43)
[2019-04-20] MEDS: NEURONTIN PO SCH (08:43)
[2019-04-20] MEDS: PROSCAR PO SCH (08:43)
[2019-04-20] MEDS: HUMULIN 70/30 SUBQ SCH ×2 (08:43→21:23)
[2019-04-20] MEDS: PRINIVIL PO SCH (08:43)
--- NOTE | 2019-04-20 08:58 | PROGRESS NOTE ---
DATE: 04/20/2019 SUBJECTIVE: The patient is very hard of hearing, but he reports feeling a little bit short of breath last night at rest, but today he is having breakfast, not complaining of any shortness of breath at all. Denies fever or chills. OBJECTIVE: Vital Signs: Temperature 98.4 degrees, heart rate 109, respiratory rate 16, blood pressure 119/73, O2 saturation 95% on room air. General: This is a chronically ill-appearing and hard of hearing 88-year-old male, lying in bed in no acute distress. HEENT: Head is normocephalic, atraumatic. Mucous membranes dry. Poor dentition. Neck: No JVD noted. No carotid bruit. Cardiovascular: S1, S2 heard. No murmurs, gallops, or rubs. Regular rate and rhythm. Respiratory: Crackles and coarse breath sounds noted in both pulmonary rucker, mostly noted in both bases. Patient is not using any accessory muscles or having work of breathing. Abdomen: Soft, nontender to palpation. Nondistended. Bowel sounds present. No organomegaly. Extremities: No clubbing, cyanosis or edema. Peripheral pulses present in both legs. Neurological: The patient is very hard of hearing, but followed commands. Speech is coherent. Moves 4 extremities. LABORATORY DATA: White cell count 14.06, hemoglobin 10.9, hematocrit 32.4, platelets 179,000. Creatinine 2.2, sodium 132. The CT of the chest from yesterday showed bilateral lower lobe infiltrates compatible with pneumonia or aspiration and aspirating mucus or material in the trachea, advanced calcified coronary artery disease. ASSESSMENT AND PLAN: 1. Acute respiratory failure secondary to bilateral lower lobe pneumonia. That is what we found in the CT of the chest from yesterday. Considering his chronic kidney disease, I prefer to switch antibiotics from vancomycin to Zyvox and will change Levaquin for cefepime renally dosed in this case, 1 g q.12 hours. At this point will continue with the same management. Will continue also with Xopenex q.4 hours as scheduled. 2. Congestive heart failure. We have ordered an echocardiogram which shows ejection fraction 40 to 45%. The x-ray at admission showed pulmonary edema. Patient is on Lasix 40 mg IV q.24 hours. So far, he is making good urine. The patient reports feeling and breathing better. I think at this point it is reasonable to continue with this medication. The patient on admission was on Lasix 40 mg IV q.[address] did not reveal any pulmonary edema so Cardiology decided to stop that medication. At this point, we will continue to monitor. 3. Diabetes mellitus type 2. Will continue with Accu-Cheks before meals and also at bedtime and sliding scale insulin as well. 4. Hypertension. Blood pressure is definitely much better. We are not going to make any changes to his current medications. 5. Atrial fibrillation with rapid ventricular response. The patient has been evaluated by Cardiology. It is not completely sure that this patient had atrial fibrillation. Cardiology will follow this patient. Will continue with beta genaro by now. Will continue to monitor. 6. Elevated troponins noted. The patient evaluated by Cardiology. He is not complaining of any chest pain at this point. It is important to remark that those were trending up, but apparently no EKG changes and patient, as we mentioned before, he is not complaining of any chest pain. 7. Disposition. At this point, will continue to monitor this patient in the [facility]. Patient on lisinopril and beta-blockers as well. Will continue with same medications. cc: Jt Monsivais MD
[2019-04-20] MEDS ORDERED: CALMOSEPTINE OINTMENT TOP PRN (08:59)
[2019-04-20] MEDS: XOPENEX NEB INH SCH ×5 (10:40→23:27)
[2019-04-20] MEDS ORDERED: D5 1/2 NS 1,000 ML IV SCH (13:00)
--- NOTE | 2019-04-20 13:32 | CARDIOLOGY PROGRESS NOTE ---
DATE: 04/20/2019 SUBJECTIVE: Mr. Huerta just overall feels better. He is not having any pain complaints. OBJECTIVE: Vital Signs: The patient is afebrile over the last 24 hours. Heart rate 80, blood pressure 129/52. Telemetry currently shows sinus. General: He is in no acute distress. Cardiovascular: He sounds to be in a regular rate and rhythm. He has no murmurs. He has no S3. No lower extremity edema. Chest: Exam sounds clear. He has no increased work of breathing. Abdomen: Soft, nontender. PERTINENT DATA: White count 14, hematocrit 32, platelet count is 179,000. His sodium is 132, potassium 4.3, BUN 64, creatinine is 2.2 which is up from yesterday and has been trending up the entirety of the hospitalization. His cardiac enzymes from yesterday are noted. ASSESSMENT: Mr. Huerta is an 88-year-old gentleman who presents with pneumonia. PLAN: His echocardiogram shows a mild reduction in LV function. He has a baseline left bundle branch block. He has had some nonsustained ventricular tachycardia as well as an elevation of his troponin. Would likely tend to pursue cardiac catheterization in this patient when his renal function improves. His telemetry has not clearly been evident for atrial fibrillation; he has had some runs of nonsustained ventricular tachycardia. I am concerned that he did have 1 bout of atrial fibrillation identified on April 18 at 2230, but this was a poor study. He has had very small amplitude P-waves previously. Currently, he is on weight-based Lovenox that is renally dosed. He has not had recurrence of this atrial fibrillation since then. cc: MD Jt Manjarrez MD
[2019-04-21] MEDS: XOPENEX NEB INH SCH ×6 (03:25→23:50)
[2019-04-21 05:34] LABS: BASO# 0.01 X1000 (0.0-0.2); BASO% 0.1 % (0.0-0.8); EOS# 0.21 X1000 (0.0-0.7); EOS% 2.1 % (0.0-10.0); HEMATOCRIT 30.9 % (42.0-52.0); HEMOGLOBIN 10.3 g/dL (14.0-18.0); IMM GRAN# 0.03 X1000 (0.0-0.04); IMM GRAN% 0.3 % (0.0-0.5); LYMPH# 1.22 X1000 (1.2-3.4); MCH 31.7 PG (27-31); MCHC 33.3 g/dL (33-37); MCV 95.1 FL (81-99); MONO# 0.97 X1000 (0.11-0.59); MONO% 9.5 % (1.7-9.3); MPV 9.5 FL (7.4-10.4); NEUT# 7.72 X1000 (1.4-6.5); PLT 175 X1000 (130-400); RBC 3.25 XMIL (4.7-6.1); RDW 12.6 % (11.5-14.5); WBC 10.16 X1000 (4.8-10.8)
[2019-04-21 06:01] LABS: CALCIUM 8.9 mg/dL (8.8-10.2); POTASSIUM 4.3 mmol/L (3.5-5.1)
[2019-04-21] MEDS: PRILOSEC PO SCH (06:09)
--- NOTE | 2019-04-21 08:25 | PROGRESS NOTE ---
DATE: 04/21/2019 SUBJECTIVE: Patient reports some substernal chest pressure on and off last night. He reports feeling less short of breath. No other complaints noted. OBJECTIVE: Vital Signs: Temperature 98.3 degrees, heart rate 98, respiratory rate 26, blood pressure 135/60, O2 saturation 95% on room air. General Examination: This is a chronically ill- appearing and hard of hearing, 88-year-old, male, lying in bed, in no acute distress. HEENT: Head is normocephalic and atraumatic. Mucous membranes are dry. Neck: No JVD noted. No carotid bruits. No lymphadenopathy. No thyromegaly. Cardiovascular Examination: S1 and S2 heard. No murmurs, gallops, or rubs. Regular rate and rhythm. Respiratory Examination: Some crackles and coarse breath sounds noted still in both pulmonary rucker, mostly noted in both pulmonary bases. Patient is not using any accessory muscles or having work of breathing. Abdomen: Soft, nontender to palpation. Nondistended. Bowel sounds present. No organomegaly. Extremities: No clubbing, cyanosis, or edema. Peripheral pulses present in both legs. Neurological Examination: The patient is very hard of hearing but followed commands. Speech is coherent. Moves 4 extremities. Laboratory Data: White cell count 10.16, hemoglobin 10.3, hematocrit 30.9, platelets 175,000. Renal function 2.0 and sodium 131. IMPRESSION AND PLAN: 1. Acute respiratory failure secondary to bilateral lower lobe pneumonia. Patient currently is on Zyvox and cefepime, renally dosed. White cell count is finally back to normal. He is requiring no oxygen supplementation at this time so I think this condition is definitely getting much better. At this point, we will continue also with Xopenex every 4 hours as scheduled. 2. Left ventricular systolic dysfunction. We have found out in the echocardiogram that the ejection fraction is 40-45%. Initially, the patient was receiving Lasix intravenous every 24 hours, but not any more. 3. Diabetes mellitus type 2. We will continue with Accu-Chek before meals and also at bedtime. 4. Hypertension. Blood pressure is under control. We will continue with the same management. 5. Atrial fibrillation with rapid ventricular response. There was a concern for possible atrial fibrillation that was documented a few days ago. The patient is not currently in atrial fibrillation now. We will continue with a beta-genaro. Dr. Saini from cardiology mentioned that he may need to do a left heart catheterization. He prefers to wait until renal function gets better. I checked creatinine from 2016 and that was normal. I do not know if this is acute or chronic kidney disease. In any case, creatinine continues to improve. Pneumonia is definitely well controlled so I think if a left heart catheterization is needed, I think we can do it tomorrow. 6. Elevated troponins noted. The patient was evaluated by cardiology. He is complaining of some chest pain versus chest discomfort and pressure last night. We will order an EKG and we will go from there. 7. Disposition. At this point, we are following the lead from cardiology. We will see if they want to pursue a left heart catheterization inpatient versus outpatient. cc: Jt Monsivais MD MTDD
[2019-04-21] MEDS: ZYVOX 600 MG/D5W 600 MG/300 ML IVPB IV SCH ×2 (08:38→21:10)
[2019-04-21] MEDS: LOPRESSOR PO SCH (08:39)
[2019-04-21] MEDS: MAXIPIME 1 GM in NS 50 ML IV SCH ×2 (08:39→21:10)
[2019-04-21] MEDS: HUMULIN 70/30 SUBQ SCH ×2 (08:39→21:09)
[2019-04-21] MEDS: PRINIVIL PO SCH (08:40)
[2019-04-21] MEDS: NEURONTIN PO SCH (08:40)
[2019-04-21] MEDS: ASPIRIN EC PO SCH (08:40)
[2019-04-21] MEDS: LOVENOX SUBQ SCH (08:40)
[2019-04-21] MEDS: PROSCAR PO SCH (08:40)
[2019-04-21] MEDS: MIRALAX PO SCH ×2 (14:00→21:58)
[2019-04-21] MEDS ORDERED: D5 1/2 NS 500 ML IV SCH (15:30)
--- NOTE | 2019-04-21 16:24 | CARDIOLOGY PROGRESS NOTE ---
DATE: 04/21/2019 SUBJECTIVE: Mr. Huerta reports he is doing well today. He has no pain complaints. His breathing has improved. PHYSICAL EXAMINATION: Vital Signs: He is afebrile. His heart rate is 78, blood pressure 128/55. Most of his systolics have been in the 100s to 120s. General: He is in no acute distress. Cardiovascular: He sounds to be in a regular rate and rhythm. His telemetry currently seems to show sinus. No lower extremity edema. Chest: Exam is clear bilaterally. He has no increased work of breathing. Abdomen: His abdomen is soft, nontender. PERTINENT DATA: His white count is 10, his hematocrit is 30, his platelet count is 175. Sodium is 131, potassium 4.3. BUN 58, creatinine is 2, which is down from 64 and 2.2. ASSESSMENT: Mr. Huerta is an 88-year-old gentleman who presented with pneumonia. He had a troponin elevation, and has had runs of nonsustained ventricular tachycardia. In addition, he has a mildly reduced left ventricular systolic function along with a left bundle branch block. PLAN: We will tentatively proceed with cardiac catheterization on Friday. We will allow his renal function to recover another 24 hours before pursuing this again. I will give him another 500 mL of IV fluids. cc: MD Jt Manjarrez MD
[2019-04-21] MEDS: ATIVAN PO SCH (21:09)
[2019-04-21] MEDS: TYLENOL PO PRN (22:02)
[2019-04-22] MEDS ORDERED: G.I. COCKTAIL PO ONE (00:18)
[2019-04-22] MEDS: XOPENEX NEB INH SCH ×4 (05:13→15:38)
[2019-04-22] MEDS: PRILOSEC PO SCH (06:27)
[2019-04-22 07:05] LABS: BASO# 0.02 X1000 (0.0-0.2); BASO% 0.3 % (0.0-0.8); EOS# 0.14 X1000 (0.0-0.7); EOS% 1.8 % (0.0-10.0); HEMATOCRIT 33.1 % (42.0-52.0); HEMOGLOBIN 10.8 g/dL (14.0-18.0); IMM GRAN# 0.05 X1000 (0.0-0.04); IMM GRAN% 0.7 % (0.0-0.5); LYMPH# 1.28 X1000 (1.2-3.4); LYMPH% 16.8 % (20.5-51.1); MCH 31.4 PG (27-31); MCHC 32.6 g/dL (33-37); MCV 96.2 FL (81-99); MONO# 0.82 X1000 (0.11-0.59); MONO% 10.8 % (1.7-9.3); MPV 9.2 FL (7.4-10.4); NEUT# 5.31 X1000 (1.4-6.5); NEUT% 69.6 % (42.2-75.2); PLT 200 X1000 (130-400); RBC 3.44 XMIL (4.7-6.1); RDW 12.5 % (11.5-14.5); WBC 7.62 X1000 (4.8-10.8)
--- NOTE | 2019-04-22 07:08 | EKG Report ---
Test Performed on : 04/22/2019 06:52:01 AM Test Reason : chest pain Blood Pressure : / mmHG Vent. Rate : 098 BPM Atrial Rate : 098 BPM P-R Int : 176 ms QRS Dur : 148 ms QT Int : 386 ms P-R-T Axes : 097 -26 137 degrees QTc Int : 492 ms Normal sinus rhythm. Left bundle branch block Abnormal ECG When compared with ECG of 19-APR-2019 02:29, No significant change was found Confirmed by Edis Reich MD ([id number]) on 04/22/2019 1:00:37 PM
[2019-04-22 07:27] LABS: CALCIUM 9.4 mg/dL (8.8-10.2); CREATININE 1.7 mg/dL (0.7-1.2); POTASSIUM 4.4 mmol/L (3.5-5.1)
--- NOTE | 2019-04-22 09:14 | CARDIOLOGY PROGRESS NOTE ---
DATE: 04/22/2019 SUBJECTIVE: Mr. Huerta has been doing well. He has no complaints today. PHYSICAL EXAMINATION: Vital Signs: He is afebrile, heart rate 95, blood pressure 139/65. His I's and O's were positive yesterday. General: He is in no acute distress. Cardiovascular: He sounds to be in a regular rate and rhythm. He has no murmurs. He has no S3. He has no lower extremity edema. Chest: Mild rales in the bilateral bases consistent with previous exams. Abdomen: Soft, nontender. PERTINENT DATA: His sodium is 138, potassium is 4.4, BUN 40, creatinine is 1.7. ASSESSMENT: Mr. Huerta is an 88-year-old gentleman who presented with a pneumonia. PLAN: Based on his mild reduction in LV function, left bundle branch block, troponin elevation, and bouts of nonsustained VT, we will proceed with cardiac catheterization in the morning. Risks, benefits, and alternatives have been explained. His creatinine is near baseline. I will give him a liter of fluid at 75 mL an hour, starting at noon today. Recheck laboratories in the morning. I have escalated his metoprolol to 75 mg b.i.d. based on his blood pressures and heart rates. cc: MD Jt Manjarrez MD
[2019-04-22] MEDS: PROSCAR PO SCH (09:37)
[2019-04-22] MEDS: MIRALAX PO SCH ×2 (09:37→20:23)
[2019-04-22] MEDS: LOVENOX SUBQ SCH (09:37)
[2019-04-22] MEDS: LOPRESSOR PO SCH ×2 (09:38→20:24)
[2019-04-22] MEDS: NEURONTIN PO SCH (09:38)
[2019-04-22] MEDS: PRINIVIL PO SCH (09:38)
[2019-04-22] MEDS: HUMULIN 70/30 SUBQ SCH ×2 (09:45→20:26)
[2019-04-22] MEDS: ASPIRIN EC PO SCH (09:45)
--- NOTE | 2019-04-22 09:46 | PROGRESS NOTE ---
DATE: 04/22/2019 SUBJECTIVE: The patient continues to reports substernal chest pressure, and some heartburn in the epigastric area noted. OBJECTIVE: Vital Signs: Temperature 98.5 degrees, heart rate 95, respiratory rate 19, blood pressure 139/65, O2 saturation 97% on room air. General: This is a chronically ill-appearing and hard of hearing, 88-year-old, male, lying in bed in no acute distress. HEENT: Head is normocephalic, atraumatic. Mucous membranes dry. Neck: No JVD noted. No carotid bruits. No lymphadenopathy. No thyromegaly. Cardiovascular: S1, S2 heard. No murmurs, gallops, or rubs. Regular rate and rhythm. Respiratory: Some crackles. Coarse breath sounds noted in both pulmonary bases. Basically the same in comparing with yesterday. The patient is not using any accessory muscles or having work of breathing. Abdomen: Soft, nontender to palpation, nondistended. Bowel sounds present. No organomegaly. Extremities: No clubbing, cyanosis, or edema. Peripheral pulses present in both legs. Neurological: The patient is very hard of hearing, but follows commands. He has speech that is coherent. Moves all 4 extremities. LABORATORY DATA: White cell count 7.62, hemoglobin 10.8, hematocrit 33.1, platelets 200,000. BMP reveals creatinine 1.7, glucose 109. ASSESSMENT AND PLAN: 1. Acute respiratory failure secondary to bilateral lower lobe pneumonia. Will continue with cefepime and Zyvox renally dosed. Actually, today is day #2 of both medications. At this point, will continue with the same management. White cell count remains within normal limits. Will continue also with Xopenex as well. 2. Atrial fibrillation with rapid ventricular response. Heart rate is definitely well controlled. Cardiology has been consulted for this condition. They are planning to do left heart catheterization tomorrow to wait until renal function gets better. Actually, creatinine was 2.7 yesterday, and today is 1.7. Will continue to monitor. 3. Hypertension. Blood pressure is under control. Will continue with the same management. 4. Left ventricular systolic dysfunction. Aware. Will continue to monitor. 5. Elevated troponins noted. The patient is not complaining of any chest pain today. 6. Chronic kidney disease stage 2. I do not know what his baseline creatinine is. I think he should be chronic kidney disease stage 2 considering his current creatinine level and glomerular filtration rate. Will continue to monitor BMP. 7. Disposition. The patient has been scheduled for left heart catheterization today. I think considering his chronic kidney disease, after that procedure is done, I am planning to keep him over the weekend to monitor creatinine, and if everything is okay, will let him go on Friday. cc: Jt Monsivais MD
[2019-04-22] MEDS ORDERED: NS 250 ML ONE (11:05)
[2019-04-22 11:24] LABS: INR 1.13; PROTIME 14.7 Seconds (11.0-16.0)
[2019-04-22] MEDS: MAXIPIME 1 GM in NS 50 ML IV SCH ×2 (12:00→23:20)
[2019-04-22] MEDS ORDERED: D5 1/2 NS 1,000 ML IV SCH (12:00)
[2019-04-22] MEDS: ZYVOX 600 MG/D5W 600 MG/300 ML IVPB IV SCH ×2 (12:30→23:21)
[2019-04-22] MEDS: LIDODERM TOP SCH (12:56)
[2019-04-22] MEDS: ATIVAN PO SCH (20:24)
[2019-04-23] MEDS: XOPENEX NEB INH SCH ×6 (04:28→23:24)
[2019-04-23] MEDS: PRILOSEC PO SCH (06:00)
[2019-04-23 08:41] LABS: BASO# 0.03 X1000 (0.0-0.2); BASO% 0.3 % (0.0-0.8); EOS# 0.24 X1000 (0.0-0.7); EOS% 2.7 % (0.0-10.0); HEMATOCRIT 33.2 % (42.0-52.0); HEMOGLOBIN 10.8 g/dL (14.0-18.0); IMM GRAN# 0.06 X1000 (0.0-0.04); IMM GRAN% 0.7 % (0.0-0.5); LYMPH# 1.45 X1000 (1.2-3.4); LYMPH% 16.6 % (20.5-51.1); MCH 31.5 PG (27-31); MCHC 32.5 g/dL (33-37); MCV 96.8 FL (81-99); MONO# 0.98 X1000 (0.11-0.59); MONO% 11.2 % (1.7-9.3); MPV 9.5 FL (7.4-10.4); NEUT# 5.99 X1000 (1.4-6.5); NEUT% 68.5 % (42.2-75.2); PLT 219 X1000 (130-400); RBC 3.43 XMIL (4.7-6.1); RDW 12.5 % (11.5-14.5); WBC 8.75 X1000 (4.8-10.8)
[2019-04-23 09:04] LABS: CALCIUM 9.2 mg/dL (8.8-10.2); CREATININE 1.4 mg/dL (0.7-1.2); POTASSIUM 4.7 mmol/L (3.5-5.1)
[2019-04-23 09:20] LABS: INR 1.07
--- NOTE | 2019-04-23 09:55 | PROGRESS NOTE ---
DATE: 04/23/2019 SUBJECTIVE: The patient reports non substernal chest pain or chest pressure last night or during the last 24 hours. He is still complaining of some heartburn in the epigastric area. No other complaints noted. The patient is very hard of hearing. OBJECTIVE: Vital Signs: Temperature 98.4 degrees, heart rate 77, respiratory rate 16, and blood pressure 152/61. O2 saturation 98% on room air. General: This is a chronically ill-appearing and hard of hearing 88-year-old male lying in bed in no acute distress. Cardiovascular: S1, S2 heard. No murmurs, gallops, or rubs. Regular rate and rhythm. Lungs: There are minimal crackles noted. Some coarse breath sounds in both pulmonary bases. Patient is not using any accessory muscles or having work of breathing. Abdomen: Soft. Nontender to palpation. Nondistended. Bowel sounds present. No organomegaly. Extremities: No clubbing, cyanosis, or edema. Peripheral pulses present in both legs. Neurological: The patient is very hard of hearing but followed commands. Speech is coherent. Moves 4 extremities. Oriented x3. LABORATORY DATA: Cell count 8.75, hemoglobin 10.8, hematocrit 33.2, and platelets 219,000 with BMP that reveals creatinine 1.4. ASSESSMENT AND PLAN: 1. Acute respiratory failure secondary to bilateral lower lobe pneumonia. We will continue with cefepime and zyvox renally doses. Today, is day #3 of both medications. The patient reports feeling fine. We will continue with Xopenex. White cell count is normal, and patient is not spiking any fever so we will continue with the same management. 2. Atrial fibrillation with rapid ventricular response. Heart rate is well controlled. Actually, because also was complaining for chest pain as well, they are planning to do a left heart catheterization today. Creatinine continues to improve. It is 1.4 today. We will continue to monitor. 3. Hypertension. Blood pressure is under control. We will continue with same management. 4. Left ventricular systolic dysfunction. Aware. We will continue to monitor. 5. Elevated troponin's noted. Patient is not complaining of any chest pain today. 6. Chronic kidney disease stage 2. I think that is what the patient has. His renal function continues to improve anyway. We will continue to monitor. 7. Disposition: Patient is going to have a left heart catheterization today. Considering his chronic kidney disease and the fact that we are going to use contrast for this left heart catheterization, I prefer to keep him over the weekend to see how his renal function does. On Friday, we will release him and send him to rehab facility. cc: Jt Monsivais MD MTDSuzan
[2019-04-23] MEDS: ASPIRIN EC PO SCH (09:56)
[2019-04-23] MEDS: HUMULIN 70/30 SUBQ SCH ×2 (09:57→20:57)
[2019-04-23] MEDS: NEURONTIN PO SCH (09:58)
[2019-04-23] MEDS: PRINIVIL PO SCH (09:58)
[2019-04-23] MEDS: LOPRESSOR PO SCH ×2 (09:58→20:56)
[2019-04-23] MEDS: PROSCAR PO SCH (09:58)
[2019-04-23] MEDS: LOVENOX SUBQ SCH (09:59)
[2019-04-23] MEDS: MIRALAX PO SCH ×2 (09:59→20:56)
[2019-04-23] MEDS: LIDODERM TOP SCH ×2 (10:15→13:42)
[2019-04-23] MEDS ORDERED: HEPARIN 1000 UNITS/NS 2,000 UNIT/1,000 ML IV.SOLN ONE (11:34)
[2019-04-23] MEDS ORDERED: NITROGLYCERIN ONE (11:34)
[2019-04-23] MEDS ORDERED: XYLOCAINE 1% ONE (11:42)
[2019-04-23] MEDS ORDERED: NS 250 ML ONE (12:11)
[2019-04-23] MEDS ORDERED: ANESTHESIA PB SET 88 IN 5742 ONE (12:11)
[2019-04-23] MEDS ORDERED: DILAUDID ONE (12:11)
[2019-04-23] MEDS ORDERED: VERSED ONE (12:11)
--- NOTE | 2019-04-23 13:18 | CARDIAC CATH REPORT ---
PROCEDURE NAME: - INDICATION: Elevated cardiac enzymes. Nonsustained ventricular tachycardia. Mild reduction in heart function. Left bundle branch block. PROCEDURES PERFORMED: 1. Selective coronary angiography. 2. Left heart catheterization. PROCEDURE IN DETAIL: Mr. Huerta was brought the catheterization laboratory in fasting state. Informed consent was obtained, prepped in usual fashion. He was anesthetized over the right radial artery after Hayes's test proved adequate. A 5-Austrian sheath was placed via true Seldinger technique. Radial cocktail was administered. Catheters were introduced and hemodynamic measurements made in the ascending thoracic aorta. Coronary angiography was performed in multiple views using JL3.5 and JR4 diagnostic catheters. Left heart catheterization was performed using the JR4. At the conclusion of the procedure, all sheaths and catheters were removed. TR band was left inflated at 11 mL of air. Good capillary refill. Good hemostasis. FINDINGS: 1. The left main has a distal 30% lesion and originates from the left coronary cusp. 2. The left anterior descending originates from the left main. There is an ostial 50 to 60 percent lesion with moderate diffuse disease noted after a trifurcation of diagonals. The remainder of the mid and distal vessel appears relatively small. There may be some severe small vessel distal disease in the left anterior descending. There it is an extremely small vessel. The trifurcation of diagonals appears to have some potentially moderate to severe disease ostially. These diagonals are extremely small. 3. The circumflex is essentially occluded ostially. 4. The right coronary originates from the right coronary cusp. Proximal 30 to 40 percent disease is noted with mild luminal irregularities in the mid vessel. The distal vessel has very severe small vessel disease in the extreme distal vessel. 5. Aortic blood pressure 145/55 with a mean 87. Left ventricular pressure 142/6 with an LVEDP of 14. ASSESSMENT: Mr. Huerta is an 88-year-old gentleman who presented with pneumonia, was found to have an elevated troponin, mild reduction in ejection fraction, nonsustained ventricular tachycardia. PLAN: He has multiple areas with severe lesions that do not seem amenable to any sort of intervention. Notably, he has an occluded circumflex. He has severe distal small vessel right coronary disease and possibly some severe distal LAD disease. Overall his vessels in the left system are quite small. We will plan on treating him medically. He had some bouts of atrial fibrillation during this hospitalization so we will initiate him on Eliquis tomorrow. Stop his Lovenox. We will ensure he is on high-intensity statin therapy by starting atorvastatin today. We will start amlodipine 5 mg daily tomorrow to increase his antianginal therapy. This will be in addition to the metoprolol [address] him on 100 mL an hour of D5 half normal saline for 500 mL total for renal protection. We will check a BMP in the morning. If he is stable in the morning, he can likely be discharged. cc: Juan C Saini MD MTDD
[2019-04-23] MEDS: MAXIPIME 1 GM in NS 50 ML IV SCH (13:41)
[2019-04-23] MEDS: ZYVOX 600 MG/D5W 600 MG/300 ML IVPB IV SCH (13:41)
[2019-04-23] MEDS ORDERED: D5 1/2 NS 500 ML IV ONE (14:00)
[2019-04-23] MEDS: ATIVAN PO SCH (20:56)
[2019-04-23] MEDS: LIPITOR PO SCH (20:56)
[2019-04-24] MEDS: MAXIPIME 1 GM in NS 50 ML IV SCH ×2 (00:24→12:18)
[2019-04-24] MEDS: ZYVOX 600 MG/D5W 600 MG/300 ML IVPB IV SCH ×2 (00:24→12:18)
[2019-04-24] MEDS: XOPENEX NEB INH SCH ×6 (04:28→23:50)
[2019-04-24] MEDS: PRILOSEC PO SCH (06:09)
[2019-04-24 07:01] LABS: BASO# 0.03 X1000 (0.0-0.2); BASO% 0.3 % (0.0-0.8); EOS# 0.28 X1000 (0.0-0.7); EOS% 2.7 % (0.0-10.0); HEMATOCRIT 34.4 % (42.0-52.0); HEMOGLOBIN 11.1 g/dL (14.0-18.0); IMM GRAN# 0.09 X1000 (0.0-0.04); IMM GRAN% 0.9 % (0.0-0.5); LYMPH# 1.97 X1000 (1.2-3.4); LYMPH% 18.9 % (20.5-51.1); MCH 30.8 PG (27-31); MCHC 32.3 g/dL (33-37); MCV 95.6 FL (81-99); MONO# 1.06 X1000 (0.11-0.59); MONO% 10.1 % (1.7-9.3); MPV 9.3 FL (7.4-10.4); NEUT# 7.02 X1000 (1.4-6.5); NEUT% 67.1 % (42.2-75.2); PLT 237 X1000 (130-400); RDW 12.4 % (11.5-14.5); WBC 10.45 X1000 (4.8-10.8)
[2019-04-24 07:21] LABS: CALCIUM 8.7 mg/dL (8.8-10.2); CREATININE 1.3 mg/dL (0.7-1.2); POTASSIUM 4.6 mmol/L (3.5-5.1)
[2019-04-24] MEDS ORDERED: INSULIN PEN NEEDLES ONE ×2 (08:12→20:48)
[2019-04-24] MEDS: HUMULIN 70/30 SUBQ SCH ×2 (08:23→20:43)
[2019-04-24] MEDS: ELIQUIS PO SCH ×2 (08:23→20:43)
[2019-04-24] MEDS: PRINIVIL PO SCH (08:23)
[2019-04-24] MEDS: LOPRESSOR PO SCH ×2 (08:24→20:42)
[2019-04-24] MEDS: ASPIRIN EC PO SCH (08:24)
[2019-04-24] MEDS: PROSCAR PO SCH (08:24)
[2019-04-24] MEDS: NORVASC PO SCH (08:24)
[2019-04-24] MEDS: NEURONTIN PO SCH (08:24)
[2019-04-24] MEDS: MIRALAX PO SCH ×2 (08:25→20:42)
[2019-04-24] MEDS: LIDODERM TOP SCH (09:02)
--- NOTE | 2019-04-24 09:20 | PROGRESS NOTE ---
DATE: 04/24/2019 SUBJECTIVE: Patient reports feeling fine. Reports some neck pain. He requests his pain patches [id number] he uses at home. Denies any chest pain at this time. No other complaints noted. No acute issues noted as per nursing staff overnight. OBJECTIVE: Vital Signs: Temperature 98.6, heart rate 76, respiratory rate 15, blood pressure 145/44, O2 saturation 97% on room air. General Examination: This is a chronically ill appearing, hard of hearing, 88-year-old male lying in bed in no acute distress. Cardiovascular: S1, S2 heard. Irregularly irregular, but no murmurs, gallops or rubs noted. Respiratory exam: Minimal coarse breath sounds noted in both pulmonary bases. Definitely much better in comparing with admission. Patient is not using any accessory muscles or having work of breathing. Abdomen: Soft, nontender to palpation. Nondistended. Bowel sounds present. No organomegaly. Extremities: No clubbing, cyanosis, or edema. Peripheral pulses present in both lower extremities. Neurologic exam: The patient is very hard of hearing, but follow commands. Alert and oriented x3. He moves 4 extremities spontaneously. LABORATORY DATA: White cell count 10.45, hemoglobin 11.1, hematocrit 34.4, platelets 237. BMP remarkable for creatinine 1.3 with sodium 134. ASSESSMENT AND PLAN: 1. Acute respiratory failure secondary to bilateral lower lobe pneumonia. The patient reports breathing better. He is not requiring any oxygen supplementation. He is receiving DuoNeb as needed for shortness of breath. Today is day #4 for Zyvox and cefepime. We will continue with the same management. 2. Atrial fibrillation with rapid ventricular response. Heart rate is well controlled. At this point, we will continue with the same management. 3. Chest pain/elevated troponins. The patient was evaluated by Cardiology and they decided to do a left heart catheterization, which basically shows some diffuse coronary artery disease, but he does not need to have any stents placed. Cardiology is optimizing medical treatment. Currently, he is receiving amlodipine 5 mg 1 tablet p.o. daily. He is receiving also metoprolol 25 mg p.o. b.i.d. It has been recommended to start Eliquis on this patient. We will follow recommendations from Cardiology. 4. Chronic kidney disease stage II. We were not sure about the stage of the kidney dysfunction, but creatinine continues to improve. Creatinine is 1.3 today and what we are planning to do is to keep him over the weekend. On Friday if everything is okay including renal function, then we will discharge this patient to rehabilitation facility. 5. Disposition: As mentioned before, we will monitor basic metabolic panel daily on Friday. If everything is okay, we will discharge him to rehabilitation. cc: Jt Monsivais MD
[2019-04-24] MEDS: PATIENT'S OWN MED TOP SCH ×2 (09:22→20:47)
[2019-04-24] MEDS: ATIVAN PO SCH (20:43)
[2019-04-24] MEDS: LIPITOR PO SCH (20:43)
[2019-04-25] MEDS: MAXIPIME 1 GM in NS 50 ML IV SCH ×2 (00:45→12:09)
[2019-04-25] MEDS: ZYVOX 600 MG/D5W 600 MG/300 ML IVPB IV SCH (00:45)
[2019-04-25] MEDS: XOPENEX NEB INH SCH ×5 (03:41→23:40)
[2019-04-25] MEDS: PRILOSEC PO SCH (06:00)
[2019-04-25 07:04] LABS: BASO# 0.02 X1000 (0.0-0.2); BASO% 0.2 % (0.0-0.8); EOS# 0.18 X1000 (0.0-0.7); HEMATOCRIT 31.6 % (42.0-52.0); HEMOGLOBIN 10.6 g/dL (14.0-18.0); IMM GRAN# 0.05 X1000 (0.0-0.04); IMM GRAN% 0.6 % (0.0-0.5); LYMPH# 1.71 X1000 (1.2-3.4); LYMPH% 19.3 % (20.5-51.1); MCH 31.5 PG (27-31); MCHC 33.5 g/dL (33-37); MCV 93.8 FL (81-99); MONO# 0.72 X1000 (0.11-0.59); MONO% 8.1 % (1.7-9.3); MPV 9.2 FL (7.4-10.4); NEUT# 6.17 X1000 (1.4-6.5); NEUT% 69.8 % (42.2-75.2); PLT 207 X1000 (130-400); RBC 3.37 XMIL (4.7-6.1); RDW 12.1 % (11.5-14.5); WBC 8.85 X1000 (4.8-10.8)
[2019-04-25] MEDS: ASPIRIN EC PO SCH (08:07)
[2019-04-25] MEDS: PRINIVIL PO SCH (08:07)
[2019-04-25] MEDS: NEURONTIN PO SCH (08:08)
[2019-04-25] MEDS: ELIQUIS PO SCH ×2 (08:08→20:30)
[2019-04-25] MEDS: LOPRESSOR PO SCH ×2 (08:08→20:30)
[2019-04-25] MEDS: MIRALAX PO SCH ×2 (08:08→20:31)
[2019-04-25] MEDS: PROSCAR PO SCH (08:08)
[2019-04-25] MEDS: NORVASC PO SCH (08:08)
[2019-04-25 08:21] LABS: CALCIUM 8.6 mg/dL (8.8-10.2); CREATININE 1.4 mg/dL (0.7-1.2); POTASSIUM 4.6 mmol/L (3.5-5.1)
[2019-04-25] MEDS ORDERED: VANCOMYCIN IV PER PHARMACY MISC SCH (09:00)
--- NOTE | 2019-04-25 09:35 | PROGRESS NOTE ---
DATE: 04/25/2019 SUBJECTIVE: The patient reports still having some cough. He does request his Celexa to be restarted because he was feeling pretty anxious. OBJECTIVE: Vital Signs: Temperature 98.5 degrees, heart rate 69, respiratory rate 17, blood pressure 133/66, O2 saturation 97% on room air. General Examination: This is a chronically ill- appearing, hard of hearing, 88-year-old, male, lying in bed, in no acute distress. Cardiovascular Examination: S1 and S2 heard. Irregularly irregular but no murmurs, gallops, or rubs noted. Respiratory Examination: Minimal coarse breath sounds noted in both pulmonary bases. Definitely better in comparing with a couple of days. The patient is not using any accessory muscles or having work of breathing. Abdomen: Soft, nontender to palpation. Nondistended. Bowel sounds present. No organomegaly. Extremities: No clubbing, cyanosis, or edema. Peripheral pulses present in both legs. Neurological Examination: The patient is very hard of hearing. Does follow commands. Alert and oriented x3. Moves 4 extremities. Laboratory Data: White cell count 8.85, hemoglobin 10.6, hematocrit 31.6, platelets 207,000. Sodium 128, potassium 4.6, creatinine 1.4. ASSESSMENT AND PLAN: 1. Acute respiratory failure secondary to bilateral lower lobe pneumonia. The patient clinically reports feeling fine. He is not requiring any oxygen supplementation. He is receiving DuoNeb as needed for shortness of breath but he has not require that for at least 3 days. He is on cefepime day #5 and Zyvox as well. Because he is wanting to restart his Celexa and for risk of serotonin syndrome, I prefer to stop Zyvox, restart Celexa, and provide vancomycin while this patient is here in the hospital. 2. Atrial fibrillation with rapid ventricular response. The heart rate is well controlled. We will continue with current medications. 3. Chest pain, elevated troponins. The patient actually had, last Friday, the heart catheterization. Cardiology continues to follow this patient. The decision was made to optimize medical treatment with amlodipine 5 mg by mouth daily, metoprolol, and also Eliquis has been restarted on this patient. We will continue with the same management. 4. Chronic kidney disease stage 2. Creatinine is 1.4 today. I think that is his baseline. We will continue to monitor. 5. Disposition. Creatinine has been stable Friday and Friday so, at this point, I am planning to send him to a rehab facility tomorrow morning. We will continue with antibiotics for at least 10 more days. cc: Jt Monsivais MD MTDD
[2019-04-25] MEDS: CELEXA PO SCH (10:25)
[2019-04-25] MEDS: HUMULIN 70/30 SUBQ SCH ×2 (10:25→20:30)
[2019-04-25] MEDS ORDERED: VANCOMYCIN 1.2 GM in NS 250 ML IV SCH (11:00)
[2019-04-25] MEDS: LIDODERM TOP SCH ×2 (15:53→15:55)
[2019-04-25] MEDS: LIPITOR PO SCH (20:30)
[2019-04-25] MEDS: ATIVAN PO SCH (20:30)
[2019-04-25] MEDS: PATIENT'S OWN MED TOP SCH (20:33)
[2019-04-26] MEDS: XOPENEX NEB INH SCH ×3 (03:54→11:40)
[2019-04-26] MEDS: PRILOSEC PO SCH (06:31)
[2019-04-26 07:43] LABS: CALCIUM 8.7 mg/dL (8.8-10.2); CREATININE 1.4 mg/dL (0.7-1.2); POTASSIUM 4.6 mmol/L (3.5-5.1)
[2019-04-26] MEDS: MIRALAX PO SCH (08:15)
[2019-04-26] MEDS: HUMULIN 70/30 SUBQ SCH ×2 (08:15→12:14)
[2019-04-26] MEDS: ASPIRIN EC PO SCH (08:15)
[2019-04-26] MEDS: LOPRESSOR PO SCH (09:11)
[2019-04-26] MEDS: NORVASC PO SCH (09:11)
[2019-04-26] MEDS: NEURONTIN PO SCH (09:11)
[2019-04-26] MEDS: PROSCAR PO SCH (09:11)
[2019-04-26] MEDS: ELIQUIS PO SCH (09:11)
[2019-04-26] MEDS: CELEXA PO SCH (09:11)
[2019-04-26] MEDS: LIDODERM TOP SCH (09:12)
[2019-04-26] MEDS: PRINIVIL PO SCH (09:12)
--- NOTE | 2019-04-26 11:00 | DISCHARGE SUMMARY ---
ADMISSION DATE: 04/16/2019 DISCHARGE DATE: 04/26/2019 ADMISSION DIAGNOSES: 1. Acute on chronic systolic congestive heart failure. 2. Lactic acidosis. 3. Leukocytosis. 4. Diabetes mellitus, type 2. 5. Hypertension. 6. BPH. DISCHARGE DIAGNOSES: 1. Acute respiratory failure secondary to bilateral lobe pneumonia. 2. Atrial fibrillation with a rapid ventricular response. 3. Chest pain. 4. Chronic kidney disease, stage 2. 5. Coronary artery disease with chest pain and elevated troponins. CONSULTATIONS: Cardiology, Dr. Juan C Saini. Wound Care. PICC line placement. SURGERIES AND PROCEDURES: On 04/23/[address] Juan C Saini, the patient had a left heart catheterization which revealed 30% of left main. The LAD ostial 50% to 60%. Circumflex essentially occluded ostially. The RCA 30% to 40%. HOSPITAL COURSE: On 04/16/2019, Mr. Jose Huerta, an 88-year-old male, presented to the emergency department. He was admitted the day of 04/17/2019. He was probably admitted that night, but it was actually [facility], admitted for complaints of shortness of breath. Diagnoses included an acute on chronic systolic congestive heart failure, where he received 40 of IV Lasix daily. He had lactic acidosis. Was found to have pneumonia. Was treated for that. Given broad-spectrum antibiotics. Cardiology was consulted, and patient was transferred to [facility]. He was also found to have atrial fibrillation with RVR. Patient just really was a poor historian, but he came in being on Toprol but not anticoagulation and had a history of SVT. Heart failure improved. The lactic acidosis improved. His blood pressure was stable. Also diagnosed with some acute bronchitis while he was here which also resolved. Cardiology was consulted, and the plan was to do a left heart catheterization which did show multivessel coronary artery disease but not severe. His ejection fraction was shown to be 40% to 45%. For his atrial fibrillation with RVR, he was continued on his beta genaro and on Eliquis and aspirin. On the had the left heart catheterization which revealed the multivessel disease, and Cardiology's plan was to treat him medically, so Eliquis and beta genaro and statin and aspirin. Secondary to disuse myopathy, patient qualified for inpatient rehabilitation. DISCHARGE VITAL SIGNS: Temperature 98.3 degrees heart rate 75, respiratory rate 17, blood pressure 149/55, O2 saturation 96% on room air. DISCHARGE LABORATORY DATA: No CBC today, but CBC on the : White blood cells 8000, hemoglobin 10, hematocrit 31, platelet count 207,000. BMP on the (today): Sodium 134, potassium 4.6, BUN 23, creatinine is 1.4, glucose 80, calcium 8.7. MICROBIOLOGICAL DATA: Negative blood cultures. Negative urine culture. RADIOLOGICAL DATA: On 04/16/2019 chest x-ray: Pulmonary edema. On 04/17/2019 checks x-ray: Mild pulmonary edema. On 04/18/2019 chest x-ray: Waxing and waning basilar atelectasis. On 04/19/[address]: Bilateral lobe infiltrates compatible with pneumonia or aspiration. There was aspirated mucous or material in the trachea. Advanced calcified coronary artery disease. On 04/17/2019 echocardiogram: Ejection fraction 40% to 45%. Borderline impaired left ventricular relaxation. Tricuspid valve: Mild to moderate degree of regurgitation. Mild pulmonary hypertension with a systolic pressure of 47 mmHg. DISCHARGE MEDICATIONS: 1. Novolin 70/30, 40 units subcutaneous nightly. 2. Celexa 20 mg p.o. daily. 3. Finasteride 5 mg p.o. daily. 4. Neurontin 3 mg p.o. daily. 5. Humulin 70/30, 50 units subcutaneous daily. 6. Hydrochlorothiazide 25 mg p.o. daily. 7. Omeprazole 20 mg p.o. daily. 8. Lisinopril 2.5 mg p.o. daily. 9. Atorvastatin 40 mg p.o. nightly. 10. Ativan 0.5 mg p.o. nightly. 11. Aspirin enteric coated 325 mg p.o. daily. 12. Cefdinir 300 mg p.o. twice daily for 7 days. 13. Eliquis 5 mg p.o. twice daily. 14. Metoprolol tartrate 75 mg p.o. twice daily. 15. MiraLAX 17 g p.o. twice daily. 16. Norvasc 5 mg p.o. daily. 17. Lidoderm patch that the patient will apply on his own. DISCHARGE DIET: Diabetic, heart healthy, Liquicell protein supplementation with lunch. DISCHARGE ACTIVITY: As tolerated. Will need physical therapy. DISCHARGE PHYSICIAN FOLLOW-UPS: He will eventually need to follow up with: 1. Cardiology. 2. His primary care provider. DISCHARGE INSTRUCTIONS: Will be per facility. DISCHARGE DISPOSITION: [facility] in [place]. Dictated by CLAY Hernadez for Jt Monsivais MD Addendum: Patient seen and examined by myself. Agree with CLAY note. It reflects my assessment and plan. Patient is being discharged in stable condition to rehab facility. cc: CLAY Hernadez MD [facility]
[2019-04-26 11:28] VITALS: BP 131/85
[2019-04-26] MEDS: MAXIPIME 1 GM in NS 50 ML IV SCH ×3 (12:12)
== END 2019-04-26 14:18 | DRG 286 ==
LOC: P.ED 17:36 → SUATTDRO 17:37 → P.MEDSURG 22:00 → 3S 04-19 01:19 → 2N 04-21 11:33
PROVIDERS: ATTEND Internal Medicine